=== PATIENT | female | born 1960 | race African-American/Black ===

== ENCOUNTER → 2017-01-11 | Outpatient (CLI) | payer OTHER ==
[2015-07-05 00:09] VITALS: BP 174/96
--- NOTE | 2017-01-11 14:40 | US ---
HISTORY: Hypothyroidism Study: Thyroid sonography Comparison: None Technique: Multiple perdue scale images of the thyroid were obtained. Findings: The thyroid is normal in size and echotexture measuring 2.5 cm on the right and 3.5 cm on the left in greatest sagittal dimension. The isthmus measures 2.8 mm. On the right, there is a 7 mm heterogeneou s hypoechoic nodule which appears predominantly cystic with tiny echogenic foci favored to represent a colloid cyst. On the left, located superficially, there is an elongated entirely anechoic cystic ap pearing structure without internal vascularity representing either a superficial cystic nodule or thr ombosed vascular structure. No suspicious cystic or solid nodules are seen to warrant fine needle asp iration. Clinical correlation and follow up recommended. IMPRESSION: No focal discrete suspicious cystic or solid nodule. Incidentals as above. Reported By:
== END ==
LOC: RAD 10:31
PROVIDERS: ATTEND Nurse Practitioner Family
DX: E03.8 Other specified hypothyroidism (principal)
CPT/HCPCS: 76536

== ENCOUNTER → 2017-04-25 | Outpatient (CLI) | payer OTHER ==
[2015-07-05 00:09] VITALS: BP 174/96
--- NOTE | 2017-04-25 12:49 | MRI ---
HISTORY: Disc degeneration, low back pain with bilateral lower extremity numbness and tingling Study: MRI lumbar spine without contrast Comparison: None Technique: Multisequence, multiplanar imaging of the lumbar spine was performed without the administration of IV contrast. Findings: Imaging of the lumbar spine demonstrates minimal anterolisthesis of L4 on L5 and L5 on S1 secondary t o advanced facet hypertrophy at these levels. Chronic minimal anterior wedging of the T12 and L1 vert ebral bodies is incidentally noted. No acute or early subacute compression fracture is identified. Mu ltilevel disc desiccation is evident. There are mild degenerative endplate changes identified at mult iple levels within the lumbar spine. Mild reactive edema associated with degenerative endplate change s noted involving the L1 superior endplate. The conus terminates at the L1 level. Evaluation of the p re and paravertebral soft tissues is unremarkable. Incidental note is made of a few sacral Tarlov cys ts. T12-L1: The T12-L1 level is unremarkable. L1-L2: At the L1-L2 level there is facet hypertrophy without significant canal stenosis or neuroforam inal compromise. L2-L3: At the L2-L3 level there is facet hypertrophy and very mild disc ridging without significant c anal stenosis or neuroforaminal compromise. L3-L4: At the L3-L4 level there is a mild broad-based disc bulge as well as advanced facet hypertroph y and ligamentum flavum thickening, resulting in very mild bilateral neuroforaminal compromise but no significant canal stenosis. L4-L5: At the L4-L5 level there is a mild broad-based disc bulge as well as advanced facet hypertroph y which, along with minimal listhesis at this level, are resulting in mild bilateral neuroforaminal c ompromise but no significant canal stenosis. L5-S1: At the L5-S1 level there is a broad-based disc bulge as well as advanced facet hypertrophy whi ch, along with mild listhesis at this level, are resulting in mild bilateral neuroforaminal compromis e but no significant canal stenosis. IMPRESSION: 1. Multilevel facet arthropathy and mild degenerative disc disease as detailed above, most significan t at the L4-L5 and L5-S1 levels, where there is mild neuroforaminal compromise. Reported By:
== END ==
LOC: RAD 09:36
PROVIDERS: ATTEND Nurse Practitioner Family
DX: M51.36 Other intervertebral disc degeneration, lumbar region (principal)
CPT/HCPCS: 72148

== ENCOUNTER 2023-02-02 10:23 | Observation (INO) ==
[2023-02-02] MEDS ORDERED: LR 1,000 ML IV 1,000 ML IV ONE ×2 (10:56→15:29)
[2023-02-02] MEDS ORDERED: ANCEF VIAL 1 GRAM ONE (11:07)
[2023-02-02] MEDS ORDERED: NS 100 ML IV 100 ML ONE (11:07)
[2023-02-02] MEDS ORDERED: MARCAINE 0.25% INJ ONE (11:35)
[2023-02-02 11:48] VITALS: BMI 28.3
[2023-02-02] MEDS ORDERED: FENTANYL VIAL INJ 100 mcg ONE (12:15)
[2023-02-02] MEDS ORDERED: VERSED ONE (12:15)
[2023-02-02] MEDS ORDERED: KETAMINE 50 MG/5 ML-NACL SYRNG ONE (12:46)
[2023-02-02] MEDS ORDERED: DIPRIVAN VIAL 20 ML ONE (12:47)
[2023-02-02] MEDS ORDERED: ROBINUL ONE (12:49)
[2023-02-02] MEDS ORDERED: ZOFRAN INJ 4 MG VIAL ONE (12:49)
[2023-02-02] MEDS ORDERED: PEPCID 20 MG VIAL ONE (12:49)
[2023-02-02] MEDS ORDERED: BRIDION ONE (12:49)
[2023-02-02] MEDS ORDERED: XYLOCAINE 2 % (PLAIN) ONE (12:56)
[2023-02-02] MEDS ORDERED: ULTANE GAS IN ONE (12:56)
[2023-02-02] MEDS ORDERED: OFIRMEV IV 1000 MG VIAL 1,000 MG/100 ML VIAL IV ONE (13:27)
[2023-02-02] MEDS ORDERED: NEO-SYNEPHRINE INJ ONE (13:29)
[2023-02-02] MEDS ORDERED: DILAUDID INJ ONE ×4 (13:35→17:14)
[2023-02-02] MEDS ORDERED: DECADRON INJ ONE (13:36)
[2023-02-02] MEDS ORDERED: HYDROGEN PEROXIDE 3% ONE (15:56)
[2023-02-02] MEDS ORDERED: TYLENOL 325 MG TAB PO PRN (16:28)
[2023-02-02] MEDS ORDERED: ZOFRAN INJ 4 MG VIAL IVP PRN ×2 (16:28→16:33)
[2023-02-02] MEDS ORDERED: BARHEMSYS INJ IVP PRN (16:33)
[2023-02-02] MEDS ORDERED: REGLAN INJ 10 MG VIAL IVP PRN (16:33)
[2023-02-02] MEDS ORDERED: BENADRYL INJ 50 MG VIAL IVP PRN (16:33)
[2023-02-02] MEDS: DILAUDID INJ IVP PRN ×5 (16:48→21:26)
[2023-02-02] MEDS: PERCOCET TAB 5/325 MG PO PRN ×2 (19:58→23:59)
[2023-02-02] MEDS: COLACE CAP 100 MG PO SCH (21:06)
[2023-02-02] MEDS: ANCEF VIAL 1 GRAM IVP SCH (21:07)
[2023-02-02] MEDS ORDERED: DESYREL PO SCH (22:47)
[2023-02-03] MEDS: DILAUDID INJ IVP PRN ×6 (02:06→23:53)
[2023-02-03] MEDS: ANCEF VIAL 1 GRAM IVP SCH ×3 (05:58→21:25)
[2023-02-03 07:44] LABS: BLOOD UREA NITROGEN 10 mg/dL (7-18); CALCIUM 8.8 mg/dL (8.5-10.1); CARBON DIOXIDE 29.3 mmol/L (21-32); CHLORIDE 106 mmol/L (98-107); COR NA(FOR HYPERGLY) 144 mmol/L (136-145); CREATININE 0.84 mg/dL (0.55-1.02); GLUCOSE 120 mg/dL (65-99); POTASSIUM 3.5 mmol/L (3.5-5.1); SODIUM 144 mmol/L (136-145); eGFR NON BLACK RACES > 60 (>60)
--- NOTE | 2023-02-03 08:09 | NOTE.SOAP ---
Soap Note Note for Day of Date of Exam: 02/03/23 Subjective Data Subjective Data: POD1 s/p STJ distraction arthrodesis and CC joint arthrodesis with HANNA. Patient was emotional and in pain all night. States that the dilaudid did not help her. She refused to let the nurse loosen the bandage or give her ice. She agreed this morning to try. Otherwise she denies any other symptoms such as calf pain, nausea, vomiting, dizziness, or SOB Objective Data Objective Data: Dressings to RLE are c/d/i without strike through, leg is elevated Neurovascular status intact Able to move right toes Assessment Assessment: s/p Subtalar joint distraction arthrodesis, calcaneocuboid arthrodesis, tendoachilles lengthening (DOS; 02/02/23) End stage arthritis, Subtalar joint Malunion, Calcaneal fracture Plan Plan: Patient was seen bedside this am, she is unable to tolerate the pain and we agreed it would be best for her to stay another day. Will try to modify the pain medication. Ordered toradol 30mg IV for pain. She agreed to applying ice to right knee 20 min on, 10 min off. She is to keep right leg elevated with two pillows. Please keep dressings c/d/i. Likely she can leave tomorrow is she shows improvements
[2023-02-03] MEDS ORDERED: TORADOL 15 MG VIAL IVP PRN (08:11)
[2023-02-03] MEDS: LOVENOX INJ 40 MG SYR SC SCH (08:32)
[2023-02-03] MEDS ORDERED: OXYCODONE ACETAMINOPHEN PO PRN (09:08)
[2023-02-03] MEDS ORDERED: ROSUVASTATIN 40 MG PO SCH (09:15)
[2023-02-03] MEDS: HYDROCHLOROTHIAZIDE 25 MG TAB PO SCH (10:40)
[2023-02-03] MEDS: CRESTOR TAB 10 MG PO SCH (10:40)
[2023-02-03] MEDS: NORVASC TAB 10 MG PO SCH (10:41)
[2023-02-03] MEDS: PERCOCET TAB 5/325 MG PO PRN ×2 (12:52→21:54)
[2023-02-03] MEDS: DESYREL PO SCH (20:16)
[2023-02-03] MEDS: COLACE CAP 100 MG PO SCH (20:16)
[2023-02-03] MEDS ORDERED: CONSULT PHARMACY - POTASSIUM & MAGNESIUM XX SCH (22:00)
[2023-02-03] MEDS ORDERED: K-DUR TAB 20 MEQ PO SCH (23:00)
[2023-02-04] MEDS: DILAUDID INJ IVP PRN ×5 (04:41→21:38)
[2023-02-04 06:26] LABS: BASOPHILS # (AUTO) 0.1 X10^3/uL (0.0-0.1); BASOPHILS % (AUTO) 1.2 % (0.2-1.0); EOSINOPHILS # (AUTO) 0.2 x10^3/uL (0.0-0.2); EOSINOPHILS % (AUTO) 1.3 % (0.9-2.9); HEMATOCRIT 36.3 % (36.0-47.0); HEMOGLOBIN 12.3 g/dL (12.0-16.0); LYMPHOCYTES # (AUTO) 5.1 X10^3/uL (1.3-2.9); LYMPHOCYTES % (AUTO) 44.4 % (21.0-51.0); MEAN CORPUSCULAR HEMOGLOBIN 26.6 pg (27.0-34.0); MEAN CORPUSCULAR HGB CONC 33.9 g/dL (33.0-35.0); MEAN CORPUSCULAR VOLUME 78.5 fL (80.0-100.0); MEAN PLATELET VOLUME 8.7 fL (7.4-11.0); MONOCYTES # (AUTO) 0.8 x10^3/uL (0.3-0.8); MONOCYTES % (AUTO) 7.3 % (0.0-13.0); NEUTROPHILS # (AUTO) 5.2 x10^3/uL (2.2-4.8); NEUTROPHILS % (AUTO) 45.8 % (42.0-75.0); PLATELET COUNT 331 X10^3/uL (150.0-450.0); RED BLOOD COUNT 4.63 X10^6/uL (3.5-5.4); WHITE BLOOD COUNT 11.4 X10^3/uL (3.6-10.0)
[2023-02-04] MEDS ORDERED: CONSULT PHARMACY - POTASSIUM & MAGNESIUM XX SCH (07:00)
--- NOTE | 2023-02-04 08:33 | NOTE.SOAP ---
Soap Note Note for Day of Date of Exam: 02/03/23 Subjective Data Subjective Data: POD2 s/p STJ distraction arthrodesis and CC joint arthrodesis with HANNA. Patient still emotional and was crying this am. She states she had a better night sleep last night and pain is slowly getting better. Pain medication is starting to work. Objective Data Objective Data: Dressings to RLE are c/d/i without strike through, leg is elevated Neurovascular status intact Able to move right toes Assessment Assessment: s/p Subtalar joint distraction arthrodesis, calcaneocuboid arthrodesis, tendoachilles lengthening (DOS; 02/02/23) End stage arthritis, Subtalar joint Malunion, Calcaneal fracture Plan Plan: Patient was seen bedside this am. She is still in intolerable pain and I recommend she stay for one more day with the transition to PO pain medication. She agreed to applying ice to right knee 20 min on, 10 min off. She is to keep right leg elevated with two pillows. Please keep dressings c/d/i. She can likely leave tomorrow, granted she shows improvements
[2023-02-04] MEDS: HYDROCHLOROTHIAZIDE 25 MG TAB PO SCH (09:58)
[2023-02-04] MEDS: NORVASC TAB 10 MG PO SCH (09:58)
[2023-02-04] MEDS: K-DUR TAB 20 MEQ PO SCH ×3 (09:58→13:05)
[2023-02-04] MEDS: CRESTOR TAB 10 MG PO SCH (09:58)
[2023-02-04] MEDS: LOVENOX INJ 40 MG SYR SC SCH (09:59)
[2023-02-04] MEDS: PERCOCET TAB 5/325 MG PO PRN ×3 (10:10→19:33)
[2023-02-04] MEDS: COLACE CAP 100 MG PO SCH (20:48)
[2023-02-04] MEDS: DESYREL PO SCH (20:48)
[2023-02-05] MEDS: DILAUDID INJ IVP PRN ×2 (01:56→06:05)
[2023-02-05] MEDS: PERCOCET TAB 5/325 MG PO PRN ×3 (04:23→12:37)
[2023-02-05 06:06] VITALS: RESP 17
--- NOTE | 2023-02-05 08:01 | NOTE.SOAP ---
Soap Note Note for Day of Date of Exam: 02/05/23 Subjective Data Subjective Data: POD3 STJ distraction arthrodesis, CC Arthrodesis, Achilles Lengthening. Patient is in better spirits today, improved emotionally and states that pain has gotten more tolerable. She would like to try to transition to PO pain medication and go home. Objective Data Objective Data: Dressings to RLE are c/d/i without strike through, leg is elevated Neurovascular status intact Able to move right toes Assessment Assessment: s/p Subtalar joint distraction arthrodesis, calcaneocuboid arthrodesis, tendoachilles lengthening (DOS; 02/02/23) End stage arthritis, Subtalar joint Malunion, Calcaneal fracture Plan Plan: Patient was seen bedside this am. Please transition patient to PO pain medication, held IV meds. Continue to apply ice 20 min on, 10 min off. She is to keep right leg elevated with two pillows. Dressings c/d/i. OK to go home today, as long as pain is tolerated. Please dispense all scripts and post op instructions in chart. Plan discussed with charge nurse.
[2023-02-05] MEDS: LOVENOX INJ 40 MG SYR SC SCH (08:41)
[2023-02-05] MEDS: NORVASC TAB 10 MG PO SCH (08:42)
[2023-02-05] MEDS: HYDROCHLOROTHIAZIDE 25 MG TAB PO SCH (08:42)
[2023-02-05] MEDS: CRESTOR TAB 10 MG PO SCH (08:42)
[2023-02-05 09:40] VITALS: BP 139/70
[2023-02-05 13:17] VITALS: PULSE 80; TEMP 97.5; O2SAT 96
== END 2023-02-05 14:40 | disposition home or self-care (01) ==
LOC: SURG1 10:23 → MED/SURG 10:23
PROVIDERS: ADMIT Obstetrics & Gynecology Obstetrics; ATTEND Obstetrics & Gynecology Obstetrics
DX: Z91.190 Patient's noncompliance with other medical treatment and regimen due to financial hardship; M12.871 Other specific arthropathies, not elsewhere classified, right ankle and foot